=== PATIENT | male | born 1955 | race Caucasian/White ===

== ENCOUNTER 2020-02-02 17:57 | Emergency (ER) | payer MEDICARE ==
[~2020-02-02] VITALS: Ht 180.3 cm; Wt 83.9 kg
--- NOTE | 2020-02-02 17:58 | NUR ---
PT [id number] C/O L WRIST LACERATION. PT IS AAOX4, NOT IN RESPIRATORY DISTRESS, HOOKED TO NONPROFIT [employer]CIAL [employer]ER, KEPT RESTED AND COMFORTABLE. WILL CONTINUE TO MONITOR.
--- NOTE | 2020-02-02 18:32 | NUR ---
LUCHO NAIDU AT BEDSIDE FOR EVAL.
--- NOTE | 2020-02-02 18:38 | NUR ---
AT BEDSIDE FOR EVAL AND SUTURING.
[2020-02-02 18:57] VITALS: BP 132/77
[2020-02-02] MEDS ORDERED: IV NS 0.9% 1,000 ML BAG IV ONE (19:00)
[2020-02-02] MEDS ORDERED: LIDOCAINE 1%-EPI 1:100,000 20 ML VIAL TP ONE (19:00)
== END 2020-02-02 18:58 | disposition home or self-care (01) ==
LOC: ER 18:01
DX: S61.512A Laceration without foreign body of left wrist, initial encounter (principal); R58 Hemorrhage, not elsewhere classified; I10 Essential (primary) hypertension; E78.5 Hyperlipidemia, unspecified; E11.9 Type 2 diabetes mellitus without complications; Z88.0 Allergy status to penicillin; W26.0XXA Contact with knife, initial encounter; Y93.89 Activity, other specified; Y92.89 Other specified places as the place of occurrence of the external cause; Y99.8 Other external cause status